=== PATIENT | female | born 1970 | race Caucasian/White ===

== ENCOUNTER 2018-03-22 16:00 | Emergency (ER) | payer BC ==
[2018-03-22 16:30] VITALS: BP 116/71
--- NOTE | 2018-03-22 16:41 | UC ---
Skin Complaint HPI - HPI Summary HPI Summary: 48 y/o female presents to the urgent care c/o Patient was here two days ago and started on Bactrim for spots under left armpit. Patient was told to come back in 2 days if she was not improving, and patient states she is feeling worse. Today she complains of green pus and blood draining from her armpit and states it is painful. - History of Current Complaint Chief Complaint: UCSkin Time Seen by Provider: 03/22/18 16:38 Stated Complaint: SPOTS UNDER ARM Hx Obtained From: Patient ?: No Onset/Duration: Gradual Onset, Lasting Weeks - 4 weeks, Worse Since - 2 days ago Skin Exposure Onset/Duration: Weeks Ago - 4 weeks Onset Severity: Mild Current Severity: Severe Pain Intensity: 5 Pain Scale Used: 0-10 Numeric Location: Discrete - left axilla w/ 2 painful bumps Character: Swelling, Redness, Raised, Painful Aggravating Factor(s): Touch Alleviating Factor(s): Nothing Associated Signs & Symptoms: Positive: Rash, Drainage, Tenderness. Negative: Fever, Chills Related History: Other: - shaving - Allergy/Home Medications Allergies/Adverse Reactions: Allergies Allergy/AdvReac Type Severity Reaction Status Date / Time No Known Allergies Allergy Verified 03/22/18 16:23 Review of Systems Constitutional: Negative Skin: Rash - left axilla w/ 2 painful cysts and a red rash, swollen Eyes: Negative ENT: Negative Respiratory: Negative Cardiovascular: Negative Gastrointestinal: Negative Genitourinary: Negative Motor: Negative Neurovascular: Negative Neurological: Negative Psychological: Negative Is Patient Immunocompromised?: No All Other Systems Reviewed And Are Negative: Yes PMH/Surg Hx/FS Hx/Imm Hx Previously Healthy: Yes Endocrine History: Dyslipidemia - diet controlled - Surgical History Surgical History: Yes Surgery Procedure, Year, and Place: 2 CSECTIONS, LEFT KNEE ARTHROSCOPY - Family History Known Family History: Positive: Cardiac Disease, Hypertension, Diabetes - Social History Occupation: Employed Full-time Lives: With Family Alcohol Use: Occasionally Substance Use Type: None Smoking Status (MU): Never Smoked Tobacco Physical Exam - Summary Physical Exam Summary: Vital Signs Reviewed: Yes General: well developed, well nourished male sitting in the examining table w/o any apparent distress Eye Exam: Normal Eyes: Positive: Conjunctiva Clear - PERRLA, EOMI, fundi grossly normal ENT: Positive: Normal ENT inspection, Hearing grossly normal, Pharynx normal, TMs normal Neck: Positive: Supple, Nontender, No Lymphadenopathy Respiratory: Positive: Chest non-tender, Lungs clear, Normal breath sounds, No respiratory distress Cardiovascular: Positive: RRR, No Murmur, Pulses Normal, Brisk Capillary Refill Abdomen Description: Positive: Nontender, No Organomegaly, Soft. Negative: CVA Tenderness (R), CVA Tenderness (L) Bowel Sounds: Positive: Present Musculoskeletal: Positive: Strength Intact, ROM Intact, No Edema Neurological: Positive: Alert, Muscle Tone Normal Psychological Exam: Normal Skin: Positive: LF axilla w/ 2 erythematous pustules that is indurated and fluctuant, tender to palpation, swollen, and warm to touch about 2.0x 2.0 cm in size each on next to the other . FROM of left arm, sensation is intact, capillary refill WNL, reflexes WNL Triage Information Reviewed: Yes Vital Signs: Initial Vital Signs Temp 99 F 03/22/18 16:24 Pulse 73 03/22/18 16:24 Resp 16 03/22/18 16:24 BP 116/71 03/22/18 16:24 Pulse Ox 99 03/22/18 16:24 Course/Dx - Differential Diagnoses - Skin Complaint Differential Diagnoses: Abscess - Diagnoses Provider Diagnoses: 1- Incision and drainage of Left axillary abscess Discharge - Sign-Out/Discharge Documenting (check all that apply): Patient Departure - D/C home All imaging exams completed and their final reports reviewed: No Studies - Discharge Plan Condition: Stable Disposition: HOME Prescriptions: Bacitracin OINTMENT* 1 applic TOPICAL BID #1 tube Patient Education Materials: Abscess (ED) Referrals: Amairani Dalal MD [Primary Care Provider] - 2 Days Additional Instructions: 1-Please continue taking Bactrim PO and take full course of antibiotic to avoid resistance. Keep wound clean and dry with a sterile dressing. Apply bacitracin topical as directed 2- F/u wound check up in 2 days with your PCP or here the urgent care for removal of packing and further treatment 3-. Take Ibuprofen PO q6-8hrs prn for pain or swelling. 4-If you develop fever or redness despite antibiotic please go to the ER immediately or return to the Urgent care. 5- Wound culture sent to lab, if any abnormal result you will receive a call from us. - [place] Disposition and Condition Condition: STABLE Disposition: Home
[2018-03-22] MEDS ORDERED: Lidocaine 2% W/EPI 1:100,000* 20 ML MDV INJ ONE (16:50)
== END 2018-03-22 17:46 | disposition home or self-care (01) ==
LOC: UCEAST 16:00
DX: L02.412 Cutaneous abscess of left axilla (principal)
CPT/HCPCS: 10060; 10160; 87070; 87077; 87186; 87205; 87640; 87641; 99211; G0463

== ENCOUNTER 2018-03-24 11:22 | Emergency (ER) | payer BC ==
[2018-03-24 11:36] VITALS: BP 111/78
--- NOTE | 2018-03-24 11:40 | UC ---
Skin Complaint HPI - HPI Summary HPI Summary: 48-year-old female returns for wound recheck. She presented 4 days ago with potential abscess and was placed on Bactrim. She returned 2 days later for incision and drainage and is here today for follow-up. Her wound culture revealed positive MRSA and she is here to have further evaluation. Patient states that she feels much better and is here for checkup. No fevers. Making improvement each day. She is aware of her lab results. - History of Current Complaint Chief Complaint: UCWounds Time Seen by Provider: 03/24/18 11:35 Stated Complaint: WOUND RECHECK Hx Obtained From: Patient Hx Last Menstrual Period: deos not get periods - IUD Pain Intensity: 1 Aggravating Factor(s): Nothing Alleviating Factor(s): Unknown Associated Signs & Symptoms: Positive: Tenderness - Allergy/Home Medications Allergies/Adverse Reactions: Allergies Allergy/AdvReac Type Severity Reaction Status Date / Time No Known Allergies Allergy Verified 03/24/18 11:29 Review of Systems Constitutional: Negative Skin: Other - abscess Is Patient Immunocompromised?: No All Other Systems Reviewed And Are Negative: Yes PMH/Surg Hx/FS Hx/Imm Hx Previously Healthy: Yes - Surgical History Surgical History: Yes Surgery Procedure, Year, and Place: 2 CSECTIONS, LEFT KNEE ARTHROSCOPY - Family History Known Family History: Positive: Cardiac Disease, Hypertension, Diabetes - Social History Occupation: Employed Full-time Lives: With Family Alcohol Use: None Substance Use Type: None Smoking Status (MU): Never Smoked Tobacco Physical Exam Triage Information Reviewed: Yes Appearance: Well-Appearing, No Pain Distress, Well-Nourished Vital Signs: Initial Vital Signs Temp 97.2 F 03/24/18 11:31 Pulse 60 03/24/18 11:31 Resp 18 03/24/18 11:31 BP 111/78 03/24/18 11:31 Pulse Ox 98 03/24/18 11:31 Vital Signs Reviewed: Yes Eyes: Positive: Conjunctiva Clear ENT: Positive: Hearing grossly normal Respiratory: Positive: Chest non-tender, Lungs clear, Normal breath sounds Cardiovascular: Positive: RRR, No Murmur Musculoskeletal Exam: Normal Neurological Exam: Normal Psychological Exam: Normal Skin: Positive: Other - Left axilla with 2 incisions are clean and linear. Inferior incision had some iodoform removed without difficulty. No significant erythema or induration. Mild tenderness to palpation of the axilla. No significant axillary lymphadenopathy. No streaking. Skin is not macerated. Course/Dx - Course Course Of Treatment: Healing well at this time advised to continue with allowing some air to the area but comfortable when out or active. She is feeling well at this time does not appear to have any need for additional packing. Discussed her results she is aware of the MRSA result. Finish antibiotics and follow up as needed. - Differential Diagnoses - Skin Complaint Differential Diagnoses: Abscess - Diagnoses Provider Diagnoses: MRSA abscess Discharge - Sign-Out/Discharge Documenting (check all that apply): Patient Departure All imaging exams completed and their final reports reviewed: No Studies - Discharge Plan Condition: Good Disposition: HOME Patient Education Materials: MRSA (Methicillin-Resistant Staphylococcus Aureus ) (ED) Referrals: Amairani Dalal MD [Primary Care Provider] - 4 Days (if any concerns ) Additional Instructions: Please finish your antibiotics - Billing Disposition and Condition Condition: GOOD Disposition: Home
== END 2018-03-24 11:59 | disposition home or self-care (01) ==
LOC: UCEAST 11:22
DX: L02.412 Cutaneous abscess of left axilla (principal); B95.62 Methicillin resistant Staphylococcus aureus infection as the cause of diseases classified elsewhere
CPT/HCPCS: 99212; G0463